=== PATIENT | female | born 1930 | race Caucasian/White ===

== ENCOUNTER 2017-03-28 19:57 | Inpatient (IN) | payer MEDICARE, OTHER ==
[2017-03-28] MEDS: IPRATROPIUM (NEB) 0.5 MG/2.5 ML AMP INH (20:19)
[2017-03-28] MEDS: ALBUTEROL 0.5% (NEB) 2.5 MG/0.5 ML AMP INH (20:19)
[2017-03-28 20:28] LABS: ADD MAN DIFF? NO
[2017-03-28 20:29] LABS: WHITE BLOOD COUNT 7.9 10^3/ul (4.8-10.8)
[2017-03-28 20:29] LABS: BASOPHILS % 0.4 % (0.0-2.0); EOSINOPHILS # 0.1 10^3/ul (0.0-0.5); EOSINOPHILS % 0.6 % (0.0-7.0); HEMATOCRIT 29.8 % (37.0-47.0); HEMOGLOBIN 9.4 g/dl (12.0-16.0); LYMPHOCYTES # 0.8 10^3/ul (0.8-2.9); LYMPHOCYTES % 10.2 % (15.0-51.0); MEAN CORPUSCULAR HEMOGLOBIN 30.3 pg (29.0-33.0); MEAN CORPUSCULAR HGB CONC 31.5 g/dl (32.0-37.0); MEAN CORPUSCULAR VOLUME 96.1 fl (82.0-101.0); MEAN PLATELET VOLUME 9.5 fl (7.4-10.4); MONOCYTE # 0.6 10^3/ul (0.3-0.9); MONOCYTES % 7.3 % (0.0-11.0); NEUTROPHIL # 6.4 10^3/ul (1.6-7.5); NEUTROPHILS % 81.2 % (39.0-77.0); PLATELET COUNT 248 10^3/UL (140-415); RED CELL DISTRIBUTION WIDTH 15.9 % (11.5-14.5)
[2017-03-28] MEDS: METHYLPREDNISOLONE 125 MG INJ IV (20:36)
[2017-03-28] MEDS: CEFEPIME 2GM/50 ML (PMX) 50 ML IVPB (20:36)
[2017-03-28] MEDS: ACETAMINOPHEN 325 MG TAB PO (20:37)
[2017-03-28] MEDS: SODIUM CHLORIDE 0.9% 1L BAG IV* (20:37)
[2017-03-28 20:53] LABS: INR 1.04; PROTIME 13.7 Sec (11.9-14.9); PT RATIO 1.1
[2017-03-28 20:54] LABS: PARTIAL THROMBOPLASTIN TIME 36.3 Sec (25.0-35.0)
[2017-03-28 20:57] LABS: ALANINE AMINOTRANSFERASE 37 IU/L (13-69); ALBUMIN 3.9 g/dl (3.3-4.9); ALBUMIN/GLOBULIN RATIO 1.25; ALKALINE PHOSPHATASE 85 IU/L (42-121); ANION GAP 16 (8-16); ASPARTATE AMINO TRANSFERASE 39 IU/L (15-46); BILIRUBIN,INDIRECT 0.2 mg/dl (0-1.1); BILIRUBIN,TOTAL 0.2 mg/dl (0.2-1.3); BLOOD UREA NITROGEN 29 mg/dl (7-20); CALCIUM 8.3 mg/dl (8.4-10.2); CARBON DIOXIDE 28 mmol/L (21-31); CHLORIDE 96 mmol/L (97-110); CREATININE 1.38 mg/dl (0.44-1.00); GLUCOSE 167 mg/dl (70-220); POTASSIUM 4.6 mmol/L (3.5-5.1); SODIUM 135 mmol/L (135-144)
[2017-03-28 21:03] LABS: LACTIC ACID 1.4 mmol/L (0.5-2.0)
[2017-03-28 21:08] LABS: TROPONIN-I 0.055 ng/ml (0.00-0.12)
[2017-03-28] MEDS: VANCOMYCIN 1 GM (PMX) 250 ML IVPB (21:27)
[2017-03-28] MEDS: MAGNESIUM SULFATE 2 GM/50 ML 50 ML IVPB (21:28)
[2017-03-28] MEDS ORDERED: ACETAMINOPHEN 325 MG TAB PO (22:00)
[2017-03-28] MEDS ORDERED: ONDANSETRON 4 MG INJ IV (22:00)
[2017-03-28 23:11] LABS: LACTIC ACID 1.3 mmol/L (0.5-2.0)
[2017-03-29] MEDS ORDERED: HYDROCODONE/APAP (5/325) TAB PO
[2017-03-29] MEDS ORDERED: BISACODYL (EC) 5 MG TAB PO
[2017-03-29] MEDS ORDERED: DOCUSATE SODIUM 100 MG CAP PO
[2017-03-29] MEDS ORDERED: ONDANSETRON 4 MG TAB PO
[2017-03-29] MEDS ORDERED: MAGNESIUM HYDROXIDE 30ML CUP PO
[2017-03-29] MEDS ORDERED: ONDANSETRON 4 MG INJ IV
[2017-03-29] MEDS ORDERED: NACL 0.9% 3 ML SYG IV
[2017-03-29] MEDS ORDERED: ACETAMINOPHEN 325 MG TAB PO
[2017-03-29] MEDS: SOD CHLORIDE 0.9% 1,000 ML IV ×2 (00:26→23:44)
[2017-03-29] MEDS: ALBUTEROL/IPRATROPIUM (NEB) 3 ML AMP HHN ×6 (01:05→20:15)
[2017-03-29] MEDS: CEFTRIAXONE 2 GM/50 ML (PMX) 50 ML IVPB ×2 (01:18→23:53)
[2017-03-29] MEDS: AZITHROMYCIN 250 MG in SOD CHLORIDE 0.9% 250 ML IVPB (01:51)
[2017-03-29 02:01] LABS: LACTIC ACID 0.8 mmol/L (0.5-2.0)
[2017-03-29] MEDS: PANTOPRAZOLE 40 MG INJ IV (05:52)
[2017-03-29] MEDS: FUROSEMIDE 20 MG TAB PO (05:57)
[2017-03-29] MEDS: MULTIVITAMINS/MINERALS TAB PO (08:40)
[2017-03-29] MEDS: POTASSIUM CHLORIDE (SR) 10 MEQ TAB PO (08:40)
[2017-03-29] MEDS: METHYLPREDNISOLONE 40 MG INJ IV ×2 (08:40→22:05)
[2017-03-29] MEDS: GABAPENTIN 300 MG CAP PO ×3 (08:40→22:07)
[2017-03-29] MEDS: OSELTAMIVIR 30 MG CAP PO ×2 (08:40→22:06)
[2017-03-29] MEDS: FAMOTIDINE 20 MG TAB PO (08:41)
[2017-03-29] MEDS: METOPROLOL 25 MG TAB PO ×2 (08:41→22:11)
[2017-03-29] MEDS: ENOXAPARIN 40 MG/0.4 ML SYG SC (08:48)
[2017-03-29] MEDS: ALBUTEROL 0.083% (NEB) 2.5 MG/3 ML AMP NEB (12:10)
[2017-03-29] MEDS: ACCU-CHEK XX ×2 (17:45→21:00)
[2017-03-29] MEDS: INSULIN ASPART [NOVOLOG] 3 ML PEN SC (17:59)
[2017-03-29] MEDS: FUROSEMIDE 40 MG INJ IV (18:03)
[2017-03-29 19:51] LABS: B-TYPE NATRIURETIC PEPTIDE 3080 PG/ML (0-450)
[2017-03-29 20:03] LABS: TROPONIN-I 0.015 ng/ml (0.00-0.12)
[2017-03-29] MEDS: ATORVASTATIN 20 MG TAB PO (22:06)
[2017-03-29] MEDS: MONTELUKAST 10 MG TAB PO (22:07)
[2017-03-29] MEDS: INSULIN GLARGINE [LANtus] 3 ML PEN SC (22:18)
[2017-03-29] MEDS: GUAIFENESIN/DM 5ML CUP PO (23:53)
[2017-03-30] MEDS: ALBUTEROL/IPRATROPIUM (NEB) 3 ML AMP HHN ×6 (00:40→20:17)
[2017-03-30 01:27] LABS: TROPONIN-I 0.016 ng/ml (0.00-0.12)
[2017-03-30] MEDS: AZITHROMYCIN 250 MG in SOD CHLORIDE 0.9% 250 ML IVPB (01:30)
[2017-03-30] MEDS: GUAIFENESIN/DM 5ML CUP PO ×3 (05:09→21:32)
[2017-03-30] MEDS: PANTOPRAZOLE 40 MG INJ IV (05:10)
[2017-03-30] MEDS: FUROSEMIDE 40 MG INJ IV ×2 (05:13→17:58)
[2017-03-30 06:16] LABS: WHITE BLOOD COUNT 7.9 10^3/ul (4.8-10.8)
[2017-03-30 06:16] LABS: ABNORMAL IP MESSAGE 1; HEMATOCRIT 26.4 % (37.0-47.0); HEMOGLOBIN 8.5 g/dl (12.0-16.0); MEAN CORPUSCULAR HEMOGLOBIN 30.8 pg (29.0-33.0); MEAN CORPUSCULAR HGB CONC 32.2 g/dl (32.0-37.0); MEAN CORPUSCULAR VOLUME 95.7 fl (82.0-101.0); MEAN PLATELET VOLUME 9.7 fl (7.4-10.4); PLATELET COUNT 231 10^3/UL (140-415); RED BLOOD COUNT 2.76 10^6/ul (4.20-5.40); RED CELL DISTRIBUTION WIDTH 15.9 % (11.5-14.5)
[2017-03-30 06:23] LABS: ADD MAN DIFF? YES; POSITIVE DIFF @See below
[2017-03-30 07:00] LABS: ANION GAP 17 (8-16); BLOOD UREA NITROGEN 30 mg/dl (7-20); CALCIUM 8.6 mg/dl (8.4-10.2); CARBON DIOXIDE 23 mmol/L (21-31); CHLORIDE 104 mmol/L (97-110); CREATININE 1.15 mg/dl (0.44-1.00); GLUCOSE 163 mg/dl (70-220); POTASSIUM 4.5 mmol/L (3.5-5.1); SODIUM 139 mmol/L (135-144)
[2017-03-30] MEDS: ACCU-CHEK XX ×4 (08:23→20:33)
[2017-03-30 08:24] LABS: HEMOGLOBIN A1C 6.3 % (0-5.9)
[2017-03-30] MEDS: INSULIN ASPART [NOVOLOG] 3 ML PEN SC ×3 (08:25→17:52)
[2017-03-30] MEDS: MULTIVITAMINS/MINERALS TAB PO (09:25)
[2017-03-30] MEDS: METHYLPREDNISOLONE 40 MG INJ IV ×2 (09:25→20:31)
[2017-03-30] MEDS: OSELTAMIVIR 30 MG CAP PO ×2 (09:25→20:31)
[2017-03-30] MEDS: GABAPENTIN 300 MG CAP PO ×3 (09:25→20:31)
[2017-03-30] MEDS: METOPROLOL 25 MG TAB PO ×2 (09:26→20:32)
[2017-03-30] MEDS: FAMOTIDINE 20 MG TAB PO (09:26)
[2017-03-30] MEDS: ENOXAPARIN 30 MG/0.3 ML SYG SC (09:35)
[2017-03-30] MEDS: POTASSIUM CHLORIDE (SR) 10 MEQ TAB PO (10:06)
[2017-03-30 10:17] LABS: ANISOCYTOSIS 1+ (0-0); BAND NEUTROPHILS #M 0.7 10^3/ul (0.0-0.6); BAND NEUTROPHILS % (M) 10 % (0-4); ERYTHROBLAST% (NRBC) (M) 1 % (0-0); LYMPHOCYTES #M 0.9 10^3/ul (0.8-2.9); LYMPHOCYTES % (M) 12 % (15-51); MONOCYTE #M 0.3 10^3/ul (0.3-0.9); MONOCYTES % (M) 4 % (0-11); PLATELET ESTIMATE NORMAL; POLYCHROMASIA 2+ (0-0); SEG NEUT #M 5.9 10^3/ul (1.7-7.5); SEGMENTED NEUTROPHILS (M) % 74 % (39-77); SMUDGE%M 5 % (0-0)
[2017-03-30 12:52] LABS: TROPONIN-I 0.018 ng/ml (0.00-0.12)
[2017-03-30] MEDS: SOD CHLORIDE 0.9% 1,000 ML IV ×2 (18:03→23:44)
[2017-03-30 19:58] LABS: TROPONIN-I 0.026 ng/ml (0.00-0.12)
[2017-03-30] MEDS: MONTELUKAST 10 MG TAB PO (20:31)
[2017-03-30] MEDS: ATORVASTATIN 20 MG TAB PO (20:31)
[2017-03-30] MEDS: INSULIN GLARGINE [LANtus] 3 ML PEN SC (20:42)
[2017-03-31] MEDS: ALBUTEROL/IPRATROPIUM (NEB) 3 ML AMP HHN ×6 (00:08→20:23)
[2017-03-31] MEDS: CEFTRIAXONE 2 GM/50 ML (PMX) 50 ML IVPB ×2 (00:17→23:31)
[2017-03-31] MEDS: AZITHROMYCIN 250 MG in SOD CHLORIDE 0.9% 250 ML IVPB (01:05)
[2017-03-31 01:44] LABS: TROPONIN-I 0.033 ng/ml (0.00-0.12)
[2017-03-31] MEDS: GUAIFENESIN/DM 5ML CUP PO ×3 (03:58→23:34)
[2017-03-31] MEDS: PANTOPRAZOLE 40 MG INJ IV (05:45)
[2017-03-31] MEDS: FUROSEMIDE 40 MG INJ IV ×2 (05:46→17:28)
[2017-03-31] MEDS: POTASSIUM CHLORIDE (SR) 10 MEQ TAB PO (08:50)
[2017-03-31] MEDS: FAMOTIDINE 20 MG TAB PO (08:50)
[2017-03-31] MEDS: METHYLPREDNISOLONE 40 MG INJ IV ×2 (08:50→20:29)
[2017-03-31] MEDS: GABAPENTIN 300 MG CAP PO ×3 (08:50→20:28)
[2017-03-31] MEDS: MULTIVITAMINS/MINERALS TAB PO (08:50)
[2017-03-31] MEDS: ACCU-CHEK XX ×4 (08:50→20:47)
[2017-03-31] MEDS: OSELTAMIVIR 30 MG CAP PO ×2 (08:50→20:28)
[2017-03-31] MEDS: METOPROLOL 25 MG TAB PO ×2 (08:51→20:40)
[2017-03-31] MEDS: ENOXAPARIN 30 MG/0.3 ML SYG SC (08:55)
[2017-03-31] MEDS: INSULIN ASPART [NOVOLOG] 3 ML PEN SC ×3 (08:55→17:28)
[2017-03-31] MEDS: HYDROCODONE/HOMATROPINE 5ML CUP PO (18:25)
[2017-03-31] MEDS: ATORVASTATIN 20 MG TAB PO (20:28)
[2017-03-31] MEDS: PHENOL 1.4% SOLN 180 ML BTL MT (20:29)
[2017-03-31] MEDS: MONTELUKAST 10 MG TAB PO (20:29)
[2017-03-31] MEDS: INSULIN GLARGINE [LANtus] 3 ML PEN SC (20:36)
[2017-03-31] MEDS: ZOLPIDEM 5 MG TAB PO (23:31)
[2017-03-31] MEDS: SOD CHLORIDE 0.9% 1,000 ML IV (23:44)
[2017-04-01] MEDS: ALBUTEROL/IPRATROPIUM (NEB) 3 ML AMP HHN ×6 (00:30→20:26)
[2017-04-01] MEDS: AZITHROMYCIN 250 MG in SOD CHLORIDE 0.9% 250 ML IVPB (00:52)
[2017-04-01] MEDS: PANTOPRAZOLE 40 MG INJ IV (05:41)
[2017-04-01] MEDS: SOD CHLORIDE 0.9% 1,000 ML IV ×2 (05:42→23:44)
[2017-04-01] MEDS: GUAIFENESIN/DM 5ML CUP PO (05:43)
[2017-04-01] MEDS: FUROSEMIDE 40 MG INJ IV ×2 (05:45→17:51)
[2017-04-01 06:21] LABS: ADD MAN DIFF? NO
[2017-04-01 06:31] LABS: WHITE BLOOD COUNT 8.7 10^3/ul (4.8-10.8)
[2017-04-01 06:31] LABS: ABNORMAL IP MESSAGE 1; BASOPHIL # 0.1 10^3/ul (0.0-0.1); BASOPHILS % 0.8 % (0.0-2.0); HEMATOCRIT 28.1 % (37.0-47.0); LYMPHOCYTES # 0.8 10^3/ul (0.8-2.9); LYMPHOCYTES % 8.6 % (15.0-51.0); MEAN CORPUSCULAR HEMOGLOBIN 30.3 pg (29.0-33.0); MEAN CORPUSCULAR VOLUME 94.6 fl (82.0-101.0); MEAN PLATELET VOLUME 9.7 fl (7.4-10.4); MONOCYTE # 0.5 10^3/ul (0.3-0.9); MONOCYTES % 5.3 % (0.0-11.0); NEUTROPHIL # 6.6 10^3/ul (1.6-7.5); NEUTROPHILS % 75.7 % (39.0-77.0); NUCLEATED RED BLOOD CELLS # 0.1 10^3/ul (0.0-0.0); NUCLEATED RED BLOOD CELLS% 1.6 /100WBC (0.0-0.0); PLATELET COUNT 297 10^3/UL (140-415); RED BLOOD COUNT 2.97 10^6/ul (4.20-5.40); RED CELL DISTRIBUTION WIDTH 16.3 % (11.5-14.5)
[2017-04-01 06:32] LABS: POSITIVE DIFF @See below
[2017-04-01 07:08] LABS: ALANINE AMINOTRANSFERASE 39 IU/L (13-69); ALBUMIN 3.3 g/dl (3.3-4.9); ALBUMIN/GLOBULIN RATIO 1.03; ALKALINE PHOSPHATASE 70 IU/L (42-121); ANION GAP 13 (8-16); ASPARTATE AMINO TRANSFERASE 34 IU/L (15-46); BLOOD UREA NITROGEN 38 mg/dl (7-20); CARBON DIOXIDE 29 mmol/L (21-31); CHLORIDE 101 mmol/L (97-110); CREATININE 1.09 mg/dl (0.44-1.00); GLUCOSE 188 mg/dl (70-220); POTASSIUM 4.3 mmol/L (3.5-5.1); SODIUM 139 mmol/L (135-144); TOTAL PROTEIN 6.5 g/dl (6.1-8.1)
[2017-04-01] MEDS: ACCU-CHEK XX ×3 (08:00→21:00)
[2017-04-01] MEDS: INSULIN ASPART [NOVOLOG] 3 ML PEN SC ×3 (08:17→17:53)
[2017-04-01] MEDS: METHYLPREDNISOLONE 40 MG INJ IV (08:55)
[2017-04-01] MEDS: PHENOL 1.4% SOLN 180 ML BTL MT ×2 (08:55→21:22)
[2017-04-01] MEDS: POTASSIUM CHLORIDE (SR) 10 MEQ TAB PO (08:55)
[2017-04-01] MEDS: GABAPENTIN 300 MG CAP PO ×3 (08:55→21:21)
[2017-04-01] MEDS: MULTIVITAMINS/MINERALS TAB PO (08:56)
[2017-04-01] MEDS: OSELTAMIVIR 30 MG CAP PO ×2 (08:56→21:21)
[2017-04-01] MEDS: FAMOTIDINE 20 MG TAB PO (08:56)
[2017-04-01] MEDS: METOPROLOL 25 MG TAB PO ×2 (08:56→21:22)
[2017-04-01] MEDS: HYDROCODONE/HOMATROPINE 5ML CUP PO ×3 (09:01→21:22)
[2017-04-01] MEDS: ENOXAPARIN 30 MG/0.3 ML SYG SC (09:02)
[2017-04-01] MEDS: IODIXANOL LOCM 100 ML BTL (13:46)
[2017-04-01] MEDS: SOD CHLORIDE 0.9% 100 ML (13:46)
[2017-04-01] MEDS: ATORVASTATIN 20 MG TAB PO (21:21)
[2017-04-01] MEDS: MONTELUKAST 10 MG TAB PO (21:21)
[2017-04-01] MEDS: INSULIN GLARGINE [LANtus] 3 ML PEN SC (21:28)
[2017-04-02] MEDS: CEFTRIAXONE 2 GM/50 ML (PMX) 50 ML IVPB ×2 (00:07→23:29)
[2017-04-02] MEDS: AZITHROMYCIN 250 MG in SOD CHLORIDE 0.9% 250 ML IVPB (01:12)
[2017-04-02] MEDS: ALBUTEROL/IPRATROPIUM (NEB) 3 ML AMP HHN ×6 (01:28→20:57)
[2017-04-02] MEDS: FUROSEMIDE 40 MG INJ IV ×2 (05:59→17:24)
[2017-04-02] MEDS: PANTOPRAZOLE 40 MG INJ IV (05:59)
[2017-04-02] MEDS: ACCU-CHEK XX ×4 (07:55→21:29)
[2017-04-02] MEDS: INSULIN ASPART [NOVOLOG] 3 ML PEN SC ×3 (08:10→17:46)
[2017-04-02] MEDS: METHYLPREDNISOLONE 40 MG INJ IV (08:54)
[2017-04-02] MEDS: GABAPENTIN 300 MG CAP PO ×3 (08:55→21:26)
[2017-04-02] MEDS: FAMOTIDINE 20 MG TAB PO (08:55)
[2017-04-02] MEDS: POTASSIUM CHLORIDE (SR) 10 MEQ TAB PO (08:55)
[2017-04-02] MEDS: PHENOL 1.4% SOLN 180 ML BTL MT ×2 (08:55→21:26)
[2017-04-02] MEDS: METOPROLOL 25 MG TAB PO ×2 (08:55→21:27)
[2017-04-02] MEDS: MULTIVITAMINS/MINERALS TAB PO (08:56)
[2017-04-02] MEDS: OSELTAMIVIR 30 MG CAP PO ×2 (08:56→21:26)
[2017-04-02] MEDS: HYDROCODONE/HOMATROPINE 5ML CUP PO ×3 (09:00→21:34)
[2017-04-02] MEDS: ENOXAPARIN 30 MG/0.3 ML SYG SC (09:08)
[2017-04-02] MEDS: ATORVASTATIN 20 MG TAB PO (21:26)
[2017-04-02] MEDS: MONTELUKAST 10 MG TAB PO (21:26)
[2017-04-02] MEDS: INSULIN GLARGINE [LANtus] 3 ML PEN SC (21:29)
[2017-04-02] MEDS: SOD CHLORIDE 0.9% 1,000 ML IV (23:28)
[2017-04-03] MEDS: ALBUTEROL/IPRATROPIUM (NEB) 3 ML AMP HHN ×6 (00:24→20:21)
[2017-04-03] MEDS: AZITHROMYCIN 250 MG in DEXTROSE 5% 250 ML IVPB (00:47)
[2017-04-03] MEDS: PANTOPRAZOLE 40 MG INJ IV (05:25)
[2017-04-03] MEDS: FUROSEMIDE 40 MG INJ IV ×2 (05:26→17:53)
[2017-04-03] MEDS: ACCU-CHEK XX ×4 (08:36→21:32)
[2017-04-03] MEDS: GABAPENTIN 300 MG CAP PO ×3 (08:45→21:22)
[2017-04-03] MEDS: MULTIVITAMINS/MINERALS TAB PO (08:45)
[2017-04-03] MEDS: OSELTAMIVIR 30 MG CAP PO ×2 (08:45→21:23)
[2017-04-03] MEDS: METHYLPREDNISOLONE 40 MG INJ IV (08:45)
[2017-04-03] MEDS: POTASSIUM CHLORIDE (SR) 10 MEQ TAB PO (08:45)
[2017-04-03] MEDS: FAMOTIDINE 20 MG TAB PO (08:45)
[2017-04-03] MEDS: METOPROLOL 25 MG TAB PO ×2 (08:46→21:24)
[2017-04-03] MEDS: PHENOL 1.4% SOLN 180 ML BTL MT ×2 (08:47→21:21)
[2017-04-03] MEDS: ENOXAPARIN 30 MG/0.3 ML SYG SC (08:54)
[2017-04-03] MEDS: INSULIN ASPART [NOVOLOG] 3 ML PEN SC ×3 (08:55→17:58)
[2017-04-03] MEDS: HYDROCODONE/HOMATROPINE 5ML CUP PO ×3 (08:56→21:22)
[2017-04-03] MEDS: INSULIN GLARGINE [LANtus] 3 ML PEN SC (21:20)
[2017-04-03] MEDS: ATORVASTATIN 20 MG TAB PO (21:22)
[2017-04-03] MEDS: MONTELUKAST 10 MG TAB PO (21:27)
[2017-04-03] MEDS: SOD CHLORIDE 0.9% 1,000 ML IV (23:44)
[2017-04-03] MEDS: CEFTRIAXONE 2 GM/50 ML (PMX) 50 ML IVPB (23:49)
[2017-04-04] MEDS: ALBUTEROL/IPRATROPIUM (NEB) 3 ML AMP HHN ×5 (00:10→17:45)
[2017-04-04] MEDS: PANTOPRAZOLE 40 MG INJ IV (05:57)
[2017-04-04] MEDS: FUROSEMIDE 40 MG INJ IV ×2 (05:58→17:23)
[2017-04-04 07:28] LABS: ANION GAP 9 (8-16); BLOOD UREA NITROGEN 37 mg/dl (7-20); CALCIUM 8.7 mg/dl (8.4-10.2); CARBON DIOXIDE 38 mmol/L (21-31); CHLORIDE 96 mmol/L (97-110); CREATININE 1.02 mg/dl (0.44-1.00); GLUCOSE 93 mg/dl (70-220); POTASSIUM 4.1 mmol/L (3.5-5.1); SODIUM 139 mmol/L (135-144)
[2017-04-04] MEDS: ACCU-CHEK XX ×3 (08:00→17:25)
[2017-04-04] MEDS: INSULIN ASPART [NOVOLOG] 3 ML PEN SC ×3 (08:07→17:30)
[2017-04-04] MEDS: ENOXAPARIN 30 MG/0.3 ML SYG SC (08:08)
[2017-04-04] MEDS: POTASSIUM CHLORIDE (SR) 10 MEQ TAB PO (08:09)
[2017-04-04] MEDS: GABAPENTIN 300 MG CAP PO ×2 (08:09→12:14)
[2017-04-04] MEDS: METHYLPREDNISOLONE 40 MG INJ IV (08:09)
[2017-04-04] MEDS: MULTIVITAMINS/MINERALS TAB PO (08:09)
[2017-04-04] MEDS: FAMOTIDINE 20 MG TAB PO (08:09)
[2017-04-04] MEDS: METOPROLOL 25 MG TAB PO (08:16)
[2017-04-04] MEDS ORDERED: PHENOL 1.4% SOLN 180 ML BTL MT (09:00)
[2017-04-04] MEDS: MAGNESIUM HYDROXIDE 30ML CUP PO (13:20)
[2017-04-04] MEDS: HYDROCODONE/HOMATROPINE 5ML CUP PO (13:20)
[2017-04-04] MEDS: BISACODYL (EC) 5 MG TAB PO (13:20)
== END 2017-04-04 18:10 | DRG 190 ==
LOC: E/R 19:57 → MS2 21:56
DX: J44.1 Chronic obstructive pulmonary disease with (acute) exacerbation (principal); J96.20 Acute and chronic respiratory failure, unspecified whether with hypoxia or hypercapnia; I50.33 Acute on chronic diastolic (congestive) heart failure; N17.9 Acute kidney failure, unspecified; I27.20 Pulmonary hypertension, unspecified; I11.0 Hypertensive heart disease with heart failure; I25.10 Atherosclerotic heart disease of native coronary artery without angina pectoris; J84.112 Idiopathic pulmonary fibrosis; J44.0 Chronic obstructive pulmonary disease with (acute) lower respiratory infection; J20.9 Acute bronchitis, unspecified; D64.9 Anemia, unspecified; E11.65 Type 2 diabetes mellitus with hyperglycemia; E78.5 Hyperlipidemia, unspecified; Z79.4 Long term (current) use of insulin; Z85.51 Personal history of malignant neoplasm of bladder; Z99.81 Dependence on supplemental oxygen
CPT/HCPCS: 36415; 71045; 71260; 80048; 80053; 82962; 83036; 83605; 83880; 84443; 84484; 85025; 85610; 85730; 87040; 87400; 93005; 93306; 94640; 94644; 96365; 96366; 96368; 96375; 99285-25

== ENCOUNTER 2018-07-14 11:17 | Inpatient (IN) | payer MEDICARE, OTHER ==
[2018-07-14 12:27] LABS: ADD MAN DIFF? NO
[2018-07-14 12:37] LABS: BASOPHILS % 0.4 % (0.0-2.0); EOSINOPHILS # 0.4 10^3/ul (0.0-0.5); EOSINOPHILS % 6.2 % (0.0-7.0); HEMATOCRIT 35.3 % (37.0-47.0); HEMOGLOBIN 11.1 g/dl (12.0-16.0); LYMPHOCYTES # 0.9 10^3/ul (0.8-2.9); LYMPHOCYTES % 15.7 % (15.0-51.0); MEAN CORPUSCULAR HEMOGLOBIN 30.2 pg (29.0-33.0); MEAN CORPUSCULAR HGB CONC 31.4 g/dl (32.0-37.0); MEAN CORPUSCULAR VOLUME 95.9 fl (82.0-101.0); MEAN PLATELET VOLUME 9.1 fl (7.4-10.4); MONOCYTE # 0.4 10^3/ul (0.3-0.9); MONOCYTES % 6.9 % (0.0-11.0); NEUTROPHILS % 69.7 % (39.0-77.0); PLATELET COUNT 243 10^3/UL (140-415); RED BLOOD COUNT 3.68 10^6/ul (4.20-5.40); RED CELL DISTRIBUTION WIDTH 14.3 % (11.5-14.5)
[2018-07-14 12:37] LABS: WHITE BLOOD COUNT 5.7 10^3/ul (4.8-10.8)
[2018-07-14] MEDS: ONDANSETRON 4 MG INJ IV ×2 (12:50→14:01)
[2018-07-14] MEDS: SOD CHLORIDE 0.9% 1,000 ML IV (12:51)
[2018-07-14] MEDS: morphine 4 MG/ML VIAL IV (12:51)
[2018-07-14 12:56] LABS: ALANINE AMINOTRANSFERASE 17 IU/L (13-69); ALBUMIN 3.8 g/dl (3.3-4.9); ALBUMIN/GLOBULIN RATIO 1.31; ALKALINE PHOSPHATASE 69 IU/L (42-121); ANION GAP 7 (5-13); ASPARTATE AMINO TRANSFERASE 25 IU/L (15-46); BLOOD UREA NITROGEN 35 mg/dl (7-20); CARBON DIOXIDE 34 mmol/L (21-31); CHLORIDE 101 mmol/L (97-110); CREATININE 1.25 mg/dl (0.44-1.00); GLUCOSE 95 mg/dl (70-220); LIPASE 56 U/L (23-300); SODIUM 142 mmol/L (135-144); TOTAL PROTEIN 6.7 g/dl (6.1-8.1)
[2018-07-14] MEDS: SOD CHLORIDE 0.9% 100 ML (14:42)
[2018-07-14] MEDS: IODIXANOL LOCM 100 ML BTL (14:42)
[2018-07-14] MEDS: METOCLOPRAMIDE 10 MG INJ IV (15:24)
[2018-07-14] MEDS ORDERED: SOD CHLORIDE 0.9% 1,000 ML IV (16:48)
[2018-07-14 17:52] LABS: ADD UMIC NO; UR ASCORBIC ACID NEGATIVE (NEGATIVE); UR BILIRUBIN (Dip) NEGATIVE (NEGATIVE); UR BLOOD (Dip) NEGATIVE (NEGATIVE); UR CLARITY CLEAR (CLEAR); UR COLOR STRAW (YELLOW); UR GLUCOSE (Dip) NEGATIVE (NEGATIVE); UR KETONES (Dip) NEGATIVE (NEGATIVE); UR LEUKOCYTE ESTERASE (Dip) NEGATIVE Leu/ul (NEGATIVE); UR NITRITE (Dip) NEGATIVE (NEGATIVE); UR SPECIFIC GRAVITY (Dip) 1.029 (1.003-1.030); UR TOTAL PROTEIN (Dip) NEGATIVE (NEGATIVE); UR UROBILINOGEN (Dip) NEGATIVE (NEGATIVE)
[2018-07-14] MEDS ORDERED: GLUCOSE GEL 15 GRAM TUBE PO ×2 (23:30)
[2018-07-14] MEDS ORDERED: GLUCAGON 1 MG INJ IM (23:30)
[2018-07-14] MEDS ORDERED: GLUCOSE GEL 15 GRAM TUBE BUCCAL (23:30)
[2018-07-14] MEDS ORDERED: DEXTROSE 50% 50 ML SYRINGE IV ×2 (23:30)
[2018-07-15] MEDS: SOD CHLORIDE 0.9% 1,000 ML IV ×2 (00:17→13:30)
[2018-07-15] MEDS: METOPROLOL 25 MG TAB PO ×3 (00:34→21:03)
[2018-07-15] MEDS: ACCU-CHEK XX (02:28)
[2018-07-15] MEDS: PANTOPRAZOLE 40 MG INJ IV (06:14)
[2018-07-15] MEDS: ACETAMINOPHEN 325 MG TAB PO (06:31)
[2018-07-15 06:40] LABS: HEMOGLOBIN A1C 6.2 % (0-5.9)
[2018-07-15] MEDS: INSULIN ASPART [NOVOLOG] 3 ML PEN SC ×3 (07:56→17:51)
[2018-07-15] MEDS: predniSONE 5 MG TAB PO (08:56)
[2018-07-15] MEDS: GABAPENTIN 300 MG CAP PO (08:57)
[2018-07-15] MEDS: MULTIVITAMINS THERAPEUTIC TAB PO (08:57)
[2018-07-15] MEDS: ONDANSETRON 4 MG INJ IV (09:04)
[2018-07-15 11:07] LABS: ANION GAP 5 (5-13); BLOOD UREA NITROGEN 24 mg/dl (7-20); CALCIUM 9.2 mg/dl (8.4-10.2); CARBON DIOXIDE 32 mmol/L (21-31); CHLORIDE 105 mmol/L (97-110); CREATININE 0.97 mg/dl (0.44-1.00); GLUCOSE 102 mg/dl (70-220); POTASSIUM 4.3 mmol/L (3.5-5.1); SODIUM 142 mmol/L (135-144)
[2018-07-15] MEDS: OLOPATADINE 0.2% (ONCE A DAY) OPHTH DROP 2.5 ML BOTH EYES (13:30)
[2018-07-15] MEDS: METOCLOPRAMIDE 10 MG INJ IV (17:52)
[2018-07-15] MEDS: ATORVASTATIN 20 MG TAB PO (21:03)
[2018-07-16] MEDS: METOCLOPRAMIDE 10 MG INJ IV ×4 (01:21→17:01)
[2018-07-16] MEDS: ACCU-CHEK XX ×3 (02:36→21:00)
[2018-07-16] MEDS: SOD CHLORIDE 0.9% 1,000 ML IV ×2 (03:36→09:31)
[2018-07-16] MEDS: PANTOPRAZOLE 40 MG INJ IV (05:36)
[2018-07-16] MEDS: ACETAMINOPHEN 325 MG TAB PO (05:56)
[2018-07-16] MEDS: OLOPATADINE 0.2% (ONCE A DAY) OPHTH DROP 2.5 ML BOTH EYES (08:24)
[2018-07-16] MEDS: GABAPENTIN 300 MG CAP PO (08:24)
[2018-07-16] MEDS: predniSONE 5 MG TAB PO (08:24)
[2018-07-16] MEDS: MULTIVITAMINS THERAPEUTIC TAB PO (08:24)
[2018-07-16] MEDS: INSULIN ASPART [NOVOLOG] 3 ML PEN SC ×4 (08:27→21:37)
[2018-07-16] MEDS: METOPROLOL 25 MG TAB PO ×2 (08:33→21:31)
[2018-07-16] MEDS: ENOXAPARIN 30 MG/0.3 ML SYG SC (17:03)
[2018-07-16] MEDS ORDERED: ACCU-CHEK XX (17:35)
[2018-07-16] MEDS: NATEGLINIDE 120 MG TAB PO (18:42)
[2018-07-16] MEDS: MONTELUKAST 10 MG TAB PO (21:31)
[2018-07-16] MEDS: FUROSEMIDE 20 MG TAB PO (21:31)
[2018-07-16] MEDS: ATORVASTATIN 20 MG TAB PO (21:32)
[2018-07-16] MEDS ORDERED: GUAIFENESIN/DM 5ML CUP PO (22:30)
[2018-07-17] MEDS: ACCU-CHEK XX ×5 (02:00→21:00)
[2018-07-17] MEDS: METOCLOPRAMIDE 10 MG INJ IV ×4 (05:29→18:02)
[2018-07-17] MEDS: GUAIFENESIN/DM 5ML CUP PO (05:29)
[2018-07-17] MEDS: PANTOPRAZOLE 40 MG INJ IV (05:30)
[2018-07-17] MEDS: INSULIN ASPART [NOVOLOG] 3 ML PEN SC ×4 (08:00→20:36)
[2018-07-17] MEDS: ENOXAPARIN 30 MG/0.3 ML SYG SC (08:07)
[2018-07-17] MEDS: MULTIVITAMINS THERAPEUTIC TAB PO (08:07)
[2018-07-17] MEDS: OLOPATADINE 0.2% (ONCE A DAY) OPHTH DROP 2.5 ML BOTH EYES (08:07)
[2018-07-17] MEDS: GABAPENTIN 300 MG CAP PO (08:08)
[2018-07-17] MEDS: metFORMIN 850 MG TAB PO (08:08)
[2018-07-17] MEDS: predniSONE 5 MG TAB PO (08:08)
[2018-07-17] MEDS: NATEGLINIDE 120 MG TAB PO ×3 (08:08→18:02)
[2018-07-17] MEDS: METOPROLOL 25 MG TAB PO ×2 (08:10→20:28)
[2018-07-17] MEDS: FUROSEMIDE 20 MG TAB PO ×3 (08:10→20:28)
[2018-07-17] MEDS: ALBUTEROL/IPRATROPIUM (NEB) 3 ML AMP HHN (20:07)
[2018-07-17] MEDS: ATORVASTATIN 20 MG TAB PO (20:28)
[2018-07-17] MEDS: MONTELUKAST 10 MG TAB PO (20:29)
[2018-07-18] MEDS: METOCLOPRAMIDE 10 MG INJ IV ×5 (00:11→23:47)
[2018-07-18] MEDS: ALBUTEROL/IPRATROPIUM (NEB) 3 ML AMP HHN ×6 (00:25→20:29)
[2018-07-18] MEDS: ACCU-CHEK XX ×5 (02:00→20:36)
[2018-07-18 05:25] LABS: ADD MAN DIFF? NO
[2018-07-18] MEDS: PANTOPRAZOLE 40 MG INJ IV (05:28)
[2018-07-18 05:35] LABS: BASOPHILS % 0.3 % (0.0-2.0); EOSINOPHILS # 0.3 10^3/ul (0.0-0.5); EOSINOPHILS % 4.4 % (0.0-7.0); HEMATOCRIT 31.7 % (37.0-47.0); LYMPHOCYTES # 1.1 10^3/ul (0.8-2.9); MEAN CORPUSCULAR HEMOGLOBIN 30.5 pg (29.0-33.0); MEAN CORPUSCULAR HGB CONC 31.5 g/dl (32.0-37.0); MEAN CORPUSCULAR VOLUME 96.6 fl (82.0-101.0); MEAN PLATELET VOLUME 9.3 fl (7.4-10.4); MONOCYTE # 0.4 10^3/ul (0.3-0.9); MONOCYTES % 6.2 % (0.0-11.0); NEUTROPHIL # 4.6 10^3/ul (1.6-7.5); NEUTROPHILS % 71.3 % (39.0-77.0); PLATELET COUNT 200 10^3/UL (140-415); RED BLOOD COUNT 3.28 10^6/ul (4.20-5.40); RED CELL DISTRIBUTION WIDTH 13.7 % (11.5-14.5)
[2018-07-18 05:35] LABS: WHITE BLOOD COUNT 6.4 10^3/ul (4.8-10.8)
[2018-07-18 05:59] LABS: ANION GAP 6 (5-13); BLOOD UREA NITROGEN 23 mg/dl (7-20); CALCIUM 9.6 mg/dl (8.4-10.2); CARBON DIOXIDE 36 mmol/L (21-31); CHLORIDE 99 mmol/L (97-110); GLUCOSE 106 mg/dl (70-220); POTASSIUM 3.8 mmol/L (3.5-5.1); SODIUM 141 mmol/L (135-144)
[2018-07-18] MEDS ORDERED: METHYLPREDNISOLONE (MEDROL) DOSE PACK PO (07:00)
[2018-07-18] MEDS: INSULIN ASPART [NOVOLOG] 3 ML PEN SC ×4 (08:00→20:31)
[2018-07-18] MEDS: ENOXAPARIN 30 MG/0.3 ML SYG SC (08:25)
[2018-07-18] MEDS: MULTIVITAMINS THERAPEUTIC TAB PO (08:26)
[2018-07-18] MEDS: OLOPATADINE 0.2% (ONCE A DAY) OPHTH DROP 2.5 ML BOTH EYES (08:26)
[2018-07-18] MEDS: FUROSEMIDE 20 MG TAB PO ×3 (08:27→20:26)
[2018-07-18] MEDS: NATEGLINIDE 120 MG TAB PO ×3 (08:27→17:30)
[2018-07-18] MEDS: GABAPENTIN 300 MG CAP PO (08:28)
[2018-07-18] MEDS: METOPROLOL 25 MG TAB PO ×2 (08:28→20:26)
[2018-07-18] MEDS: METHYLPREDNISOLONE 4 MG TAB PO (08:32)
[2018-07-18] MEDS: metFORMIN 850 MG TAB PO (08:33)
[2018-07-18] MEDS: POLYETHYLENE GLYCOL 17 GM PACKET PO (20:24)
[2018-07-18] MEDS: POLYSACCHARIDE IRON COMPLEX CAP PO (20:24)
[2018-07-18] MEDS: ATORVASTATIN 20 MG TAB PO (20:24)
[2018-07-18] MEDS: MONTELUKAST 10 MG TAB PO (20:24)
[2018-07-18] MEDS: GUAIFENESIN/DM 5ML CUP PO (23:49)
[2018-07-19] MEDS: ALBUTEROL/IPRATROPIUM (NEB) 3 ML AMP HHN ×6 (00:59→20:11)
[2018-07-19] MEDS: ACCU-CHEK XX ×5 (01:23→21:00)
[2018-07-19] MEDS: PANTOPRAZOLE (EC) 40 MG TAB PO (06:03)
[2018-07-19] MEDS: METOCLOPRAMIDE 10 MG INJ IV ×3 (06:03→18:00)
[2018-07-19 06:37] LABS: ADD MAN DIFF? NO
[2018-07-19 06:51] LABS: BASOPHILS % 0.2 % (0.0-2.0); EOSINOPHILS % 0.6 % (0.0-7.0); HEMATOCRIT 31.2 % (37.0-47.0); HEMOGLOBIN 9.8 g/dl (12.0-16.0); LYMPHOCYTES % 18.6 % (15.0-51.0); MEAN CORPUSCULAR HEMOGLOBIN 30.4 pg (29.0-33.0); MEAN CORPUSCULAR HGB CONC 31.4 g/dl (32.0-37.0); MEAN CORPUSCULAR VOLUME 96.9 fl (82.0-101.0); MEAN PLATELET VOLUME 9.4 fl (7.4-10.4); MONOCYTE # 0.4 10^3/ul (0.3-0.9); MONOCYTES % 6.8 % (0.0-11.0); NEUTROPHILS % 73.1 % (39.0-77.0); PLATELET COUNT 197 10^3/UL (140-415); RED BLOOD COUNT 3.22 10^6/ul (4.20-5.40)
[2018-07-19 06:51] LABS: WHITE BLOOD COUNT 5.4 10^3/ul (4.8-10.8)
[2018-07-19 07:12] LABS: ANION GAP 5 (5-13); BLOOD UREA NITROGEN 36 mg/dl (7-20); CALCIUM 9.3 mg/dl (8.4-10.2); CARBON DIOXIDE 38 mmol/L (21-31); CHLORIDE 97 mmol/L (97-110); CREATININE 1.09 mg/dl (0.44-1.00); GLUCOSE 118 mg/dl (70-220); POTASSIUM 4.2 mmol/L (3.5-5.1); SODIUM 140 mmol/L (135-144)
[2018-07-19] MEDS: INSULIN ASPART [NOVOLOG] 3 ML PEN SC ×4 (08:00→21:00)
[2018-07-19] MEDS: METHYLPREDNISOLONE 4 MG TAB PO ×4 (09:25→22:05)
[2018-07-19] MEDS: metFORMIN 850 MG TAB PO (09:26)
[2018-07-19] MEDS: OLOPATADINE 0.2% (ONCE A DAY) OPHTH DROP 2.5 ML BOTH EYES (09:26)
[2018-07-19] MEDS: NATEGLINIDE 120 MG TAB PO ×3 (09:26→18:10)
[2018-07-19] MEDS: POLYSACCHARIDE IRON COMPLEX CAP PO ×2 (09:27→21:18)
[2018-07-19] MEDS: GABAPENTIN 300 MG CAP PO (09:27)
[2018-07-19] MEDS: METOPROLOL 25 MG TAB PO ×2 (09:27→21:17)
[2018-07-19] MEDS: MULTIVITAMINS THERAPEUTIC TAB PO (09:27)
[2018-07-19] MEDS: FUROSEMIDE 20 MG TAB PO ×3 (09:27→21:17)
[2018-07-19] MEDS: ENOXAPARIN 30 MG/0.3 ML SYG SC (09:28)
[2018-07-19] MEDS: MAGNESIUM CITRATE 300 ML BTL PO (12:54)
[2018-07-19] MEDS: BISACODYL 10 MG SUPP PR (16:47)
[2018-07-19] MEDS: ATORVASTATIN 20 MG TAB PO (21:18)
[2018-07-19] MEDS: MONTELUKAST 10 MG TAB PO (21:18)
[2018-07-20] MEDS: ALBUTEROL/IPRATROPIUM (NEB) 3 ML AMP HHN ×4 (01:22→13:00)
[2018-07-20] MEDS: METOCLOPRAMIDE 10 MG INJ IV ×4 (01:59→17:07)
[2018-07-20] MEDS: ACCU-CHEK XX ×5 (02:00→21:00)
[2018-07-20 06:10] LABS: ADD MAN DIFF? NO
[2018-07-20] MEDS: PANTOPRAZOLE (EC) 40 MG TAB PO (06:25)
[2018-07-20 06:35] LABS: BASOPHILS % 0.3 % (0.0-2.0); EOSINOPHILS % 0.2 % (0.0-7.0); HEMATOCRIT 32.3 % (37.0-47.0); HEMOGLOBIN 10.1 g/dl (12.0-16.0); LYMPHOCYTES # 0.7 10^3/ul (0.8-2.9); LYMPHOCYTES % 12.5 % (15.0-51.0); MEAN CORPUSCULAR HEMOGLOBIN 30.2 pg (29.0-33.0); MEAN CORPUSCULAR HGB CONC 31.3 g/dl (32.0-37.0); MEAN CORPUSCULAR VOLUME 96.7 fl (82.0-101.0); MEAN PLATELET VOLUME 9.4 fl (7.4-10.4); MONOCYTE # 0.2 10^3/ul (0.3-0.9); MONOCYTES % 3.5 % (0.0-11.0); NEUTROPHIL # 4.8 10^3/ul (1.6-7.5); NEUTROPHILS % 82.8 % (39.0-77.0); PLATELET COUNT 208 10^3/UL (140-415); RED BLOOD COUNT 3.34 10^6/ul (4.20-5.40); RED CELL DISTRIBUTION WIDTH 14.5 % (11.5-14.5)
[2018-07-20 06:35] LABS: WHITE BLOOD COUNT 5.8 10^3/ul (4.8-10.8)
[2018-07-20 07:05] LABS: ANION GAP 5 (5-13); BLOOD UREA NITROGEN 41 mg/dl (7-20); CALCIUM 9.4 mg/dl (8.4-10.2); CARBON DIOXIDE 38 mmol/L (21-31); CHLORIDE 96 mmol/L (97-110); CREATININE 1.07 mg/dl (0.44-1.00); GLUCOSE 158 mg/dl (70-220); POTASSIUM 4.8 mmol/L (3.5-5.1); SODIUM 139 mmol/L (135-144)
[2018-07-20] MEDS: INSULIN ASPART [NOVOLOG] 3 ML PEN SC ×4 (08:00→21:10)
[2018-07-20] MEDS: GABAPENTIN 300 MG CAP PO (08:58)
[2018-07-20] MEDS: METHYLPREDNISOLONE 4 MG TAB PO ×4 (08:58→21:08)
[2018-07-20] MEDS: OLOPATADINE 0.2% (ONCE A DAY) OPHTH DROP 2.5 ML BOTH EYES (08:58)
[2018-07-20] MEDS: NATEGLINIDE 120 MG TAB PO ×3 (08:59→17:07)
[2018-07-20] MEDS: metFORMIN 850 MG TAB PO (08:59)
[2018-07-20] MEDS: POLYSACCHARIDE IRON COMPLEX CAP PO ×2 (09:00→21:08)
[2018-07-20] MEDS: MULTIVITAMINS THERAPEUTIC TAB PO (09:00)
[2018-07-20] MEDS: METOPROLOL 25 MG TAB PO ×2 (09:00→21:09)
[2018-07-20] MEDS: FUROSEMIDE 20 MG TAB PO ×3 (09:00→21:08)
[2018-07-20] MEDS: ENOXAPARIN 30 MG/0.3 ML SYG SC (09:01)
[2018-07-20] MEDS ORDERED: ALBUTEROL/IPRATROPIUM (NEB) 3 ML AMP HHN (15:30)
[2018-07-20] MEDS: MONTELUKAST 10 MG TAB PO (21:08)
[2018-07-20] MEDS: ATORVASTATIN 20 MG TAB PO (21:08)
[2018-07-21] MEDS: ACCU-CHEK XX ×5 (01:41→20:37)
[2018-07-21] MEDS: PANTOPRAZOLE (EC) 40 MG TAB PO (05:19)
[2018-07-21] MEDS: METOCLOPRAMIDE 10 MG INJ IV ×5 (05:21→23:32)
[2018-07-21] MEDS: INSULIN ASPART [NOVOLOG] 3 ML PEN SC ×4 (08:00→20:27)
[2018-07-21] MEDS: GABAPENTIN 300 MG CAP PO (08:10)
[2018-07-21] MEDS: METHYLPREDNISOLONE 4 MG TAB PO ×3 (08:10→20:16)
[2018-07-21] MEDS: POLYSACCHARIDE IRON COMPLEX CAP PO ×2 (08:10→20:17)
[2018-07-21] MEDS: MULTIVITAMINS THERAPEUTIC TAB PO (08:11)
[2018-07-21] MEDS: NATEGLINIDE 120 MG TAB PO ×3 (08:11→17:28)
[2018-07-21] MEDS: metFORMIN 850 MG TAB PO (08:11)
[2018-07-21] MEDS: FUROSEMIDE 20 MG TAB PO ×3 (08:12→20:17)
[2018-07-21] MEDS: ENOXAPARIN 30 MG/0.3 ML SYG SC (08:12)
[2018-07-21] MEDS: OLOPATADINE 0.2% (ONCE A DAY) OPHTH DROP 2.5 ML BOTH EYES (08:12)
[2018-07-21] MEDS: METOPROLOL 25 MG TAB PO ×2 (08:13→20:17)
[2018-07-21 09:24] LABS: BLOOD UREA NITROGEN 56 mg/dl (7-20); CALCIUM 9.7 mg/dl (8.4-10.2); CHLORIDE 92 mmol/L (97-110); CREATININE 1.19 mg/dl (0.44-1.00); GLUCOSE 111 mg/dl (70-220); POTASSIUM 4.5 mmol/L (3.5-5.1); SODIUM 139 mmol/L (135-144)
[2018-07-21 09:31] LABS: ANION GAP 7 (5-13); CARBON DIOXIDE 40 mmol/L (21-31)
[2018-07-21] MEDS: POLYETHYLENE GLYCOL 17 GM PACKET PO (20:16)
[2018-07-21] MEDS: MONTELUKAST 10 MG TAB PO (20:16)
[2018-07-21] MEDS: ATORVASTATIN 20 MG TAB PO (20:17)
[2018-07-21] MEDS: GUAIFENESIN/DM 5ML CUP PO (20:17)
[2018-07-22] MEDS: ACCU-CHEK XX ×4 (01:24→17:24)
[2018-07-22] MEDS: GUAIFENESIN/DM 5ML CUP PO ×2 (05:50→11:47)
[2018-07-22] MEDS: METOCLOPRAMIDE 10 MG INJ IV ×3 (05:50→17:25)
[2018-07-22] MEDS: PANTOPRAZOLE (EC) 40 MG TAB PO (05:50)
[2018-07-22] MEDS: NATEGLINIDE 120 MG TAB PO ×3 (08:13→17:25)
[2018-07-22] MEDS: GABAPENTIN 300 MG CAP PO (08:13)
[2018-07-22] MEDS: OLOPATADINE 0.2% (ONCE A DAY) OPHTH DROP 2.5 ML BOTH EYES (08:13)
[2018-07-22] MEDS: metFORMIN 850 MG TAB PO (08:14)
[2018-07-22] MEDS: MULTIVITAMINS THERAPEUTIC TAB PO (08:14)
[2018-07-22] MEDS: ENOXAPARIN 30 MG/0.3 ML SYG SC (08:15)
[2018-07-22] MEDS: INSULIN ASPART [NOVOLOG] 3 ML PEN SC ×3 (08:17→17:25)
[2018-07-22] MEDS: METHYLPREDNISOLONE 4 MG TAB PO (08:17)
[2018-07-22] MEDS: POLYSACCHARIDE IRON COMPLEX CAP PO (08:17)
[2018-07-22] MEDS: METOPROLOL 25 MG TAB PO (08:18)
[2018-07-22] MEDS: FUROSEMIDE 20 MG TAB PO ×2 (08:18→13:57)
[2018-07-22] MEDS: BISACODYL (EC) 5 MG TAB PO (11:46)
[2018-07-22] MEDS ORDERED: LUBIPROSTONE 24 MCG CAP PO (21:00)
[2018-07-23] MEDS ORDERED: POLYETHYLENE GLYCOL 17 GM PACKET PO (09:00)
== END 2018-07-22 19:24 | DRG 543 ==
LOC: E/R 11:17 → PP2 16:48
DX: M48.56XA Collapsed vertebra, not elsewhere classified, lumbar region, initial encounter for fracture (principal); I50.30 Unspecified diastolic (congestive) heart failure; E11.43 Type 2 diabetes mellitus with diabetic autonomic (poly)neuropathy; K31.84 Gastroparesis; C67.9 Malignant neoplasm of bladder, unspecified; M70.62 Trochanteric bursitis, left hip; M70.61 Trochanteric bursitis, right hip; R31.9 Hematuria, unspecified; R11.2 Nausea with vomiting, unspecified; K59.00 Constipation, unspecified; M54.9 Dorsalgia, unspecified; I10 Essential (primary) hypertension; E78.5 Hyperlipidemia, unspecified; J44.9 Chronic obstructive pulmonary disease, unspecified; R09.02 Hypoxemia; R32 Unspecified urinary incontinence; I11.0 Hypertensive heart disease with heart failure
CPT/HCPCS: 36415; 71250; 72100; 72149; 74177; 78306; 80048; 80053; 81003; 82962; 83036; 83690; 85025; 94640; 94664; 96361; 96374; 96375; 96376; 97162; 99285-25; A9503